=== PATIENT | female | born 1975 | race Caucasian/White ===

== ENCOUNTER 2022-08-01 20:57 | Emergency (ER) | payer BC, SELFPAY ==
--- NOTE | ~2022-08-01 | XR_ITS ---
EXAMINATION: XR chest 2V DATE: 08/01/2022 21:51 INDICATION: Chest pain. TECHNIQUE: Frontal and lateral views of the chest were obtained. COMPARISON: Chest single view 09/11/2018 FINDINGS: There is no pneumonia, pleural effusion, or pneumothorax. The heart size is normal. IMPRESSION: 1. No acute cardiopulmonary disease. Reviewed, dictated and finalized at location E.
[2022-08-01 21:04] VITALS: BP 144/95; PULSE 113; RESP 16; TEMP 36.6; O2SAT 100
--- NOTE | 2022-08-01 21:15 | ECG_ITS ---
Measurements Intervals [place] Rate: 109 P: 34 OK: 158 QRS: -55 QRSD: 87 T: 56 QT: 322 QTc: 434 Interpretive Statements SINUS TACHYCARDIA POSSIBLE LEFT ATRIAL ENLARGEMENT LEFT ANTERIOR FASCICULAR BLOCK CANNOT RULE OUT SEPTAL INFARCT, AGE INDETERMINATE BORDERLINE T WAVE ABNORMALITY- ANTERIOR LEADS ABNORMAL ECG NO PREVIOUS ECG AVAILABLE FOR COMPARISON Electronically Signed On 08-02-2022 6:07:13 CDT by Amrit Allison D.O.
[2022-08-01 21:48] VITALS: O2SAT 97
[2022-08-01 21:48] LABS: Basophils Absolute Auto 0.1 K/mm3 (0.0-0.1); Basophils Percent Auto 0.7 % (0.2-1.2); Eosinophils Absolute Auto 0.3 K/mm3 (0-0.3); Eosinophils Percent Auto 2.2 % (0-4.4); Hematocrit 41.2 % (37.0-47.0); Hemoglobin 13.6 g/dL (12.0-15.0); Immature Granulocyte Absolute 0.04 K/mm3 (0.00-0.031); Immature Granulocyte Percent A 0.3 % (0-0.5); Mean Corpuscular Hemoglobin 30.2 pg (26-34); Mean Corpuscular Volume 91.4 fl (80-100); Mean Platelet Volume 8.6 fl (7.4-10.4); Monocytes Absolute Auto 0.8 K/mm3 (0.1-0.6); Monocytes Percent Auto 6.5 % (2.6-8.5); Neutrophils Absolute Auto 8.4 K/mm3 (1.3-6.7); Neutrophils Percent Auto 68.3 % (45.5-73.1); Platelet Count Result 372 k/mm3 (150-375); Red Blood Count 4.51 M/mm3 (4.2-5.4); Red Cell Distribution Width 13.2 % (11.5-14.5); White Blood Count 12.3 K/mm3 (4.5-10.0)
[2022-08-01 21:59] LABS: INR 0.9; Partial Thromboplastin Time 28.5 SECONDS (22.3-36.8); Prothrombin Time 12.9 Seconds (11.1-14.7)
[2022-08-01 22:00] LABS: Alanine Aminotransferase 24 U/L (6-35); Alkaline Phosphatase 57 U/L (38-126); Anion Gap 4 mmol/L (8-16); Aspartate Amino Transferase 23 U/L (14-36); Bilirubin,Total 0.3 mg/dL (0.2-1.3); Blood Urea Nitrogen 16 mg/dL (7-17); Calcium 9.1 mg/dL (8.4-10.2); Carbon Dioxide 28 mmol/L (22-30); Chloride 106 mmol/L (98-107); Estimated CRCL calculation 76 ml/min; Estimated Glomerular Filt Rate > 60; Glucose 135 mg/dL (65-110); Potassium 3.7 mmol/L (3.4-5.0); Sodium 138 mmol/L (137-145)
[2022-08-01 22:11] LABS: NT Pro B Type Natriuretic Pept 131 pg/mL (19.9-100); Troponin I < 0.012 ng/mL (0.000-0.034)
--- NOTE | 2022-08-01 22:22 | ED.CHESTPAIN ---
HPI - Chest Pain General Chief Complaint: Chest Pain <Dian Kinney PA-C - Last Filed: 08/02/22 04:18> Stated Complaint: dizzness <BRAYAN Stallings Last Filed: 08/02/22 04:18> Time Seen by Provider: 08/01/22 22:01 <Dian Kinney PA-C - Last Filed: 08/02/22 04:18> History of Present Illness HPI narrative: 47-year-old female with a history of a myocardial infarction in 2019 s/p stent placement reports for evaluation of chest tightness and shortness of breath that started approximately 2 days ago. Patient also reports intermittent swelling in her bilateral legs that occurs while she is exercising, is worse at the end of the day, and is associated varicose veins. Patient reports the chest tightness occurs intermittently while she was sitting. It does not occur while she is exercising. Patient states this chest pain does not like the chest pain she had when she had an [place]. Patient was followed by Dr. Hogue after her [place] and was taking Brilinta, carvedilol and a cholesterol medication. She states she has not taken any of her medications because she ran out and has not seen Dr. Hogue in 2 and half years. She is currently denying chest pain and shortness of breath while in the ED. <Dian Kinney PA-C - Last Filed: 08/02/22 04:18> Related Data Allergies/Adverse Reactions: Allergies Allergy/AdvReac Type Severity Reaction Status Date / Time No Known Allergies Allergy Unknown Verified 03/10/03 15:07 <Dian Kinney PA-C - Last Filed: 08/02/22 04:18> Review of Systems Review of Systems: CONSTITUTIONAL: Denies fever, chills EYES: Denies visual changes, redness, or discharge. ENT: Denies rhinorrhea, congestion, sore throat, or otalgia. CARDIOVASCULAR: See HPI RESPIRATORY: See HPI GASTROINTESTINAL: Denies abdominal pain, nausea, vomiting, or diarrhea. GENITOURINARY: Denies dysuria or hematuria. SKIN: Denies rash or itching. MUSCULOSKELETAL: Denies back pain, joint pain, or myalgia. NEUROLOGIC: Denies headache, dizziness, or weakness. PSYCHIATRIC: Denies anxiety or depression. <Dian Kinney PA-C - Last Filed: 08/02/22 04:18> Exam Narrative: GENERAL: Well-appearing, in no acute distress. Patient resting comfortably in exam bed. She is pleasant and conversational. HEAD: Normocephalic EYES: PERRLA. Extraocular movements intact. ENT: Nares clear. Mucous membranes moist. Oropharynx without tonsillar hypertrophy exudate or other lesions. NECK: Supple. CHEST: No respiratory distress. Clear to auscultation, no adventitious breath sounds. HEART: Regular rate and rhythm. No murmur heard. Normal peripheral pulses. ABDOMEN: Soft, nontender, normal active bowel sounds. EXTREMITIES: Normal range of motion. No edema. SKIN: Warm, dry, no rash. NEURO: No focal deficits. Alert and oriented x3. Cranial nerves II through XII intact. Strength 5 out of 5 in bilateral upper and lower extremities. Sensation intact throughout. DP and radial pulses 2+. Normal [id number]. Negative pronator drift. No dysphagia, dysarthria or aphasia. PSYCH: Normal mood and affect. <Dian Kinney PA-C - Last Filed: 08/02/22 04:18> Course [facility]/PA Physician Supervision This is a was performed by both a physician and an APC. I performed all aspects of the MDM as documented w/ the following additions: 47-year-old female presenting ED with chief complaint of some chest tightness and lower extremity edema. Extensive cardiac workup was performed which was negative. Patient's edema is likely due to peripheral edema as opposed to heart failure. Patient has been discharged with appropriate follow-up.All questions answered. Patient in agreement w/ disposition. <Angel Strong MD - Last Filed: 08/12/22 21:00> Vital Signs Vital signs: Vital Signs Temperature 97.9 F 08/01/22 21:04 Pulse Rate 113 H 08/01/22 21:04 Respiratory Rate 16 08/01/22 21:04 Blood Pressure 144/95
[2022-08-01] MEDS: SODIUM CHLORIDE 0.9% IV 1,000 ML 999 ML IV CONT (22:42)
[2022-08-01 22:43] LABS: Lipase 63 U/L (23-300)
[2022-08-02 01:54] LABS: Troponin I < 0.012 ng/mL (0.000-0.034)
[2022-08-02 03:19] VITALS: BP 130/66; PULSE 74; RESP 16; O2SAT 100
== END 2022-08-02 03:28 | disposition home or self-care (01) ==
PROVIDERS: Emergency Medicine; Emergency Provider Physician Assistant; PCP Family Medicine
DX: R07.89 Other chest pain (principal); R60.0 Localized edema; I25.2 Old myocardial infarction; Z95.5 Presence of coronary angioplasty implant and graft; R00.0 Tachycardia, unspecified; R94.31 Abnormal electrocardiogram [ECG] [EKG]
CPT/HCPCS: 36415; 71046; 80053; 81025; 83690; 83880; 84484; 85025; 85380; 85610; 85730; 93005; 96360; 96361; 99284; J7030

== ENCOUNTER 2024-06-14 08:44 | Outpatient (CLI) | payer BC, SELFPAY ==
--- NOTE | ~2024-06-14 | US_ITS ---
EXAMINATION: US thyroid DATE: 06/14/2024 09:26 INDICATION: Goiter TECHNIQUE: Multiple ultrasound images of the thyroid were obtained. COMPARISON: None. FINDINGS: The right thyroid lobe measures 5.6 x 1.8 x 2.3 cm. The left thyroid lobe measures 4.8 x 1.6 x 1.9 c m. At the inferior right thyroid lobe there is a 2.3 cm wider than tall predominant solid hypoechoic nodule with smooth margins and without echogenic foci (TI-RADS 4, moderately suspicious , FNA if >=1 .5 cm, annual followup is >=1 cm). Is also a 6 mm primarily cystic TI RADS 1 nodule at the junction o f the right thyroid lobe and isthmus. 6 mm solid bilateral hypoechoic nodule with smooth to ill-defin ed margins at the thyroid isthmus, also Ti rads 4. There is normal echotexture, echogenicity and vasc ular flow throughout the remainder of the thyroid gland. IMPRESSION: 1. The nodular goiter. Recommend ultrasound-guided fine-needle aspiration of the 2.3 cm TI-RADS 4 rig ht thyroid nodule. Reviewed, dictated and finalized at location B. IMPRESSION: 1. The nodular goiter. Recommend ultrasound-guided fine-needle aspiration of th e 2.3 cm TI-RADS 4 right thyroid nodule.
--- OUTSIDE RECORDS SUMMARY | 2024-06-14 09:17 | XMS_ITS | Clinical Summary ---
Author Organization [facility] [place] [address] Address [address] [place] [address] Care Team Providers Care E Commerce Web Developer Name Role Phone Izabella Ortiz MD Primary Care Provider + Allergies No known active allergies Medications nitroglycerin (NITROSTAT) 0.[address] YESSI MAY REPEAT Q 5 MINUTES FOR 3 DOSES. 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[place] coronary artery of [place] heart without angina pectoris 12/07/2018 History of acute anterior wall [place] 12/07/2018 Medical History Medical History Date Comments Heart attack (HCC) Anxiety Depression Family History Medical History Relation Name Comments Heart attack Father COPD Mother Relation Name Status Comments Father (Age 65) Mother (Age 63) Sister 1 Alive Sister 2 Alive Social History Tobacco Use Types Packs/Day Years Used Date Smoking Tobacco: Never Smokeless Tobacco: Never Tobacco Cessation:Counseling Given: Yes Alcohol Use Standard Drinks/Week Comments Not Currently 0 (1 standard drink = 0.6 oz pur e alcohol) Personal Safety Answer Date Recorded Getting School Help Needed Not on file 06/06 Comments Unknown Sex and Gender Information Value Date Recorded Sex Assigned at Not on file Legal Sex Female 10:49 AM CDT Gender Identity Not on file Sexual Orientation Not on file Obstetrics History Last Filed Vital Signs Vital Sign Reading Time Taken Comments Blood Pressure 110/70 09/29/2019 8:00 AM CDT Pulse 88 09/29/2019 8:00 AM CDT Temperature - - Respiratory Rate - - Oxygen Saturation 98% 09/29/2019 8:00 AM CDT Inhaled Oxygen Concentration - - Weight 86.2 kg (190 lb) 09/29/2019 8:00 AM CDT Height 160 cm (5' 3 ) 09/29/2019 8:00 AM CDT Body Mass Index 33.66 09/29/2019 8:00 AM CDT Plan of Treatment Not on file Insurance [employer] [place] Care Teams E Commerce Web Developer Relationship Specialty Start Date End Date Izabella Ortiz MD PCP - General Family Medicine 10/01/18
--- OUTSIDE RECORDS SUMMARY | 2024-06-14 09:18 | XMS_ITS | Referral Summary ---
Author Organization [facility] [place] [address] Address [address] [place] [address] Care Team Providers Care Outreach Representative Name Role Phone Izabella Ortiz MD Primary [...] Diagnosed Date Coronary artery disease [place] coronary artery of [place] heart without angina pectoris 12/07/2018 History of acute anterior wall [place] 12/07/2018 Social History Tobacco Use Types Packs/Day Years [...] on file Sexual Orientation Not on file Last Filed Vital Signs Vital Sign Reading [...] Plan of Treatment Not on file Insurance [employer] [facility] Care Teams Outreach Representative Relationship Specialty Start Date End Date Izabella Ortiz MD PCP - General Family Medicine 10/01/18
--- OUTSIDE RECORDS SUMMARY | 2024-06-14 09:18 | XMS_ITS | Data Portability ---
Author Organization [facility] Executive [place], Main Office Address [address] [place] [address] Assessment No assessment recorded. Plan of Treatment Reminders Order Date Submit Date Provider Last Modified By Organization Details Last Modified Time Details Appointments Physical/ Annual Wellness 30 2024 09:00A Aaron Ravi NP Not available Not available Not available Lab TSH, serum or plasma 2024 025 [facility] (Lab), [address] [place], [address], 06/09/2024 08:26:33 TSH, serum or plasma 2024 025 [facility] (Lab), [address] [place], [address], 06/02/2024 16:40:55 T3, free, serum or plasma 2024 025 [facility] (Lab), [address] [place], [address], 06/02/2024 16:40:56 thyroid peroxidas e (tpo) Ab, serum 2024 025 [facility] (Lab), [address] [place], [address], 06/03/2024 12:34:57 noninvasi ve colorecta l cancer DNA + occult blood screening , QL, stool 2022 023 [email or web address] [facility] (Cologuard Orders Only), [address], [address], [place], [address], 09/11/2022 08:12:33 TSH, serum or plasma [address] (Lab), [address] [place], [address], 09/04/2022 12:19:31 lipid panel, serum [address] (Lab), [address] [place], [address], 09/04/2022 12:18:42 urinalysi s, complete [address] (Lab), [address] [place], [address], 09/04/2022 12:22:40 HbA1c (hemoglob in A1c), blood [address] (Lab), [address] [place], [address], 09/04/2022 12:20:50 CMP, serum or plasma [address] (Lab), [address] [place], [address], 09/04/2022 12:21:50 CBC [address] (Lab), [address] [place], [address], 09/04/2022 12:17:48 Referral None recorded. Procedures None recorded. Surgeries None recorded. Imaging US, thyroid - Please call patient to schedule. 2024 025 [facility] ([facility] Scheduling), [address] [place], [address], 06/02/2024 10:55:24 MAMMO, screening , digital, bilateral - *please call pt to schedule* 2022 023 [email or web address] 56 [facility], [address], [address] [address], [place], [address], 09/18/2022 08:49:40 Medication Orders Veozah 45 mg tablet 2024 025 [email or web address] 2 [facility], [address] [place], [address], 06/08/2024 16:44:17 bupropion HCl XL 150 mg 24 hr tablet, extended release 2024 025 [facility] [address] [place] [address], [address], 06/02/2024 10:28:36 amoxicill in 875 mg tablet 2024 025 [facility] [address] [place] [address], [address], 06/02/2024 10:28:[address] 10 mg tablet 2022 023 [facility] [address] [place], [address], 09/17/2022 09:17:05 prednison e 20 mg tablet 2022 023 [facility], [address] [place], [address], 09/17/2022 09:17:05 amoxicill in 875 mg tablet 2022 023 [email or web address] [facility], [address] [place], [address], 06/02/2024 10:01:19 fexofenad ine 60 mg-pseudo ephedrine ER 120 mg tablet,ex t.release ,12 hr 2022 023 OTTONIEL [facility], [address], [place], [id number], 09/04/2022 09:13:23 bupropion HCl XL 150 mg 24 hr tablet, extended release 2022 023 [email or web address] [facility]190, [address], [place], [id number], 06/02/2024 10:01:26 Patient TargetsNo targets recorded. Patient Instructions Encounter Date Encounter Id Patient Instructions Last Modified By Organization Details Last Modified Time 09/04/2022 [id number] risk assessment* OTTONIEL Not availabl e 09/04/2022 13:38:44 Reason for Referral None Reported. Results Created Date Observation Date Name Description Value Unit Range Abnormal Flag Note LastModifiedBy Organization Detail LastModifiedTime 09/05/1909/04/2022 CBC W/O DIFFE RENTI AL white blood cells 8.1 x10'3 /uL 4.2-10 .8 Not Available [facility] (Lab) [address] [place], [address], 09/04/2022 20:07:57 09/05/19 23 09/04/2022 CBC W/O DIFFE RENTI AL red blood cells 4.76 x10'6 /uL 3.80-5 .20 Not Available [facility] (Lab) [address] [place], [address], 09/04/2022 20:07:57 09/05/19 23 09/04/2022 CBC W/O DIFFE RENTI AL hemoglobin 14.2 g/dL 12.0-1 5.6 Not Available [facility] (Lab) [address] [place], [address], 09/04/2022 20:07:57 09/05/19 23 09/04/2022 CBC W/O DIFFE RENTI AL hematocrit 44.2 % 35.7-4 5.7 Not Available [facility] (Lab) [address] [place], [address], 09/04/2022 20:07:57 09/05/19 23 09/04/2022 CBC W/O DIFFE RENTI AL mean red cell volume 92.9 fL 82.0-9 9.0 Not Available [facility] (Lab) [address] [place], [address], 09/04/2022 20:07:57 09/05/19 23 09/04/2022 CBC W/O DIFFE RENTI AL mean red cell hemoglobin 29.8 pg 27.0-3 3.0 Not Available [facility] (Lab) [address] [place], [address], 09/04/2022 20:07:57 09/05/19 23 09/04/2022 CBC W/O DIFFE RENTI AL mean RBC HGB concentratio n 32.1 g/dL 31.0-3 6.0 Not Available [facility] (Lab) [address] [place], [address], 09/04/2022 20:07:57 09/05/19 23 09/04/2022 CBC W/O DIFFE RENTI AL red cell distribution width 13.3 % 11.8-1 5.5 Not Available [facility] (Lab) [address] [place], [address], 09/04/2022 20:07:57 09/05/19 23 09/04/2022 CBC W/O DIFFE RENTI AL platelets 420 x10'3 /uL 150-40 0 high Not Available [facility] (Lab) [address] [place], [address], 09/04/2022 20:07:57 09/05/19 23 09/04/2022 CBC W/O DIFFE RENTI AL mean platelet volume 10.1 fL 9.0-12 .4 Not Available [facility] (Lab) [address] [place], [address], 09/04/2022 20:07:57 09/05/19 23 09/04/2022 HEMOG LOBIN A1C HA1C 6.0 % 4.0-6. 0 Diabe sherita Scree karen Crite emiliana: <5.7% Consi stent with absen ce of diabe sherita 5.7-6 .4% Consi stent with incre ased risk for diabe sherita (pred iabet es) >OR=6 .5% Consi stent with diabe sherita REFER ENCE: Diabe sherita Care 2016, 39(Guaman ppl.1 ):s13 -s22 Not Available [facility] (Lab) [address] [place], [address], 09/04/2022 20:30:02 09/05/19 23 09/04/2022 URINA LYSIS COMPL ETE, IRIS color LIGHT- YELLOW Not Available [facility] (Lab) [address] [place], [address], 09/04/2022 20:30:37 09/05/19 23 09/04/2022 URINA LYSIS COMPL ETE, IRIS appear TURBID abnormal Not Available [facility] (Lab) [address] [place], [address], 09/04/2022 20:30:37 09/05/19 23 09/04/2022 URINA LYSIS COMPL ETE, IRIS specific gravity 1.007 1.001- 1.030 Not Available [facility] (Lab) [address] [place], [address], 09/04/2022 20:30:37 09/05/19 23 09/04/2022 URINA LYSIS COMPL ETE, IRIS pH 6.5 pH_un its 5.0-9. 0 Not Available [facility] (Lab) [address] [place], [address], 09/04/2022 20:30:37 09/05/19 23 09/04/2022 URINA LYSIS COMPL ETE, IRIS leukocytes NEGATI VE shekhar/u L negati ve- Not Available [facility] (Lab) [address] [facility] [place], [address], 09/04/2022 20:30:37 09/05/19 23 09/04/2022 URINA LYSIS COMPL ETE, IRIS nitrite NEGATI VE negati ve- Not Available [facility] (Lab) [address] [place], [address], 09/04/2022 20:30:37 09/05/19 23 09/04/2022 URINA LYSIS COMPL ETE, IRIS protein NEGATI VE mg/dL negati ve- Not Available [facility] (Lab) [address] [place], [address], 09/04/2022 20:30:37 09/05/19 23 09/04/2022 URINA LYSIS COMPL ETE, IRIS glucose NORMAL mg/dL normal - Not Available [facility] (Lab) [address] [place], [address], 09/04/2022 20:30:37 09/05/19 23 09/04/2022 URINA LYSIS COMPL ETE, IRIS ketones NEGATI VE mg/dL negati ve- Not Available [facility] (Lab) [address] [place], [address], 09/04/2022 20:30:37 09/05/19 23 09/04/2022 URINA LYSIS COMPL ETE, IRIS urobilinogen NORMAL mg/dL normal - Not Available [facility] (Lab) [address] [place], [address], 09/04/2022 20:30:37 09/05/19 23 09/04/2022 URINA LYSIS COMPL ETE, IRIS bilirubin NEGATI VE mg/dL negati ve- Not Available [facility] (Lab) [address] [place], [address], 09/04/2022 20:30:37 09/05/19 23 09/04/2022 URINA LYSIS COMPL ETE, IRIS blood NEGATI VE mg/dL negati ve- Not Available [facility] (Lab) [address] [place], [address], 09/04/2022 20:30:37 09/05/19 23 09/04/2022 URINA LYSIS COMPL ETE, IRIS white blood cells 0-8 /i??h pfi?? 0-8 Not Available [facility] (Lab) [address] [place], [address], 09/04/2022 20:30:37 09/05/19 23 09/04/2022 URINA LYSIS COMPL ETE, IRIS red blood cells 0-4 /i??h pfi?? 0-4 Not Available [facility] (Lab) [address] [place], [address], 09/04/2022 20:30:37 09/05/19 23 09/04/2022 URINA LYSIS COMPL ETE, IRIS bacteria NONE Not Available [facility] (Lab) [address] [place], [address], 09/04/2022 20:30:37 09/05/19 23 09/04/2022 URINA LYSIS COMPL ETE, IRIS squamous epithelial PACKED FIELD /i??l pfi?? abnormal Not Available [facility] (Lab) [address] [place], [address], 09/04/2022 20:30:37 09/05/19 23 09/04/2022 LIPID PANEL cholesterol 174 mg/dL 140-19 9 NIH PRADEEP NSUS RECOM MENDA TION FOR JEROME STERO L: ADULT CHILD LOW RISK: <200 <170 BORDE RLINE : <200- 239 ----- HIGH RISK: >240 >200 Not Available [facility] (Lab) [address] [place], [address], 09/04/2022 21:15:13 09/05/19 23 09/04/2022 LIPID PANEL triglyceride s 58 mg/dL 0-150 NIH PRADEEP NSUS REPOR T RECOM MENDA TION FOR TRIGL YCERI JOHN: ADULT CHILD LOW RISK: <150 ----- BODER LINE: 150-1 99 ----- HIGH RISK: >200 ----- Not Available [facility] (Lab) [address] [place], [address], 09/04/2022 21:15:13 09/05/19 23 09/04/2022 LIPID PANEL HDL cholesterol 41 mg/dL 40- Not Available [facility] (Lab) [address] [place], [address], 09/04/2022 21:15:13 09/05/19 23 09/04/2022 LIPID PANEL LDL cholesterol, calculated 121 mg/dL 0-130 NIH PRADEEP NSUS REPOR T RECOM MENDA TIONS FOR LDL: ADULT CHILD LOW RISK <130 <110 (OPTI MAL LDL) <100 ----- BORDE RLINE : 130-1 59 ----- HIGH RISK: >160 >130 A TRIGL YCERI DE RESUL T >400 INVAL IDATE S THE CALCU LATIO N FOR LDL FRACT IONAT ION - THE LDL RESUL T WILL NOT BE REPOR [place]. Not Available [facility] (Lab) [address] [place], [address], 09/04/2022 21:15:13 09/05/19 23 09/04/2022 COMPR EHENS DAMIAN METAB OLIC PANEL sodium 140 mmol/ L 137-14 5 Not Available [facility] (Lab) [address] [place], [address], 09/04/2022 21:15:19 09/05/19 23 09/04/2022 COMPR EHENS DAMIAN METAB OLIC PANEL potassium 4.2 mmol/ L 3.5-5. 1 Not Available [facility] (Lab) [address] [place], [address], 09/04/2022 21:15:19 09/05/19 23 09/04/2022 COMPR EHENS DAMIAN METAB OLIC PANEL chloride 106 mmol/ L 98-107 Not Available [facility] (Lab) [address] [place], [address], 09/04/2022 21:15:19 09/05/19 23 09/04/2022 COMPR EHENS DAMIAN METAB OLIC PANEL carbon dioxide 25 mmol/ L 22-30 Not Available [facility] (Lab) [address] [place], [address], 09/04/2022 21:15:19 09/05/19 23 09/04/2022 COMPR EHENS DAMIAN METAB OLIC PANEL anion gap 13.2 mmol/ L 14-22 low Not Available [facility] (Lab) [address] [place], [address], 09/04/2022 21:15:19 09/05/19 23 09/04/2022 COMPR EHENS DAMIAN METAB OLIC PANEL glucose 86 mg/dL 70-99 Not Available [facility] (Lab) [address] [place], [address], 09/04/2022 21:15:19 09/05/19 23 09/04/2022 COMPR EHENS DAMIAN METAB OLIC PANEL BUN 14 mg/dL 8-19 Not Available [facility] (Lab) [address] [place], [address], 09/04/2022 21:15:19 09/05/19 23 09/04/2022 COMPR EHENS DAMIAN METAB OLIC PANEL creatinine 0.89 mg/dL 0.66-1 .25 Not Available [facility] (Lab) [address] [place], [address], 09/04/2022 21:15:19 09/05/19 23 09/04/2022 COMPR EHENS DAMIAN METAB OLIC PANEL GFR >60 Refer ence Range : [place] ge GFR Healt hy Adult : >60 mL/mi n/1.7 3 m2 Chron ic Kidne y Disea se: 15-60 mL/mi n/1.7 3 m2 Kidne y Failu re: <15/m L/min /1.73 m2 www.n iddk. nih.g ov The MDRD study equat ion has not been valid ated in child annita <18 years of age; pregn ant women ; the elder ly >85 years of age; or in some racia l or ethni c subgr oups, such as Hispa nics. Outsi de the valid ated peyton eters , estim ated GFR is less accur ate, requi ring clini malcolm judgm ent on a case- by-ca se basis . Clini malcolm inter preta tion for other races and ages must be made by the clini mynor. The MDRD study equat ion has not been valid ated for the evalu ation of serum creat inine relat ed to nutri gwen l statu s or medic ation usage . For perso ns <18 years of age, a pedia tric GFR calcu lator is avail able on the [facility] websi te: https ://uriel shields.santy johnson/pr lorin jane s/kdo qi/gf r_cal culat or Not Available [facility] (Lab) [address] [place], [address], 09/04/2022 21:15:19 09/05/1909/04/2022 COMPR EHENS DAMIAN METAB OLIC PANEL alkaline phosphatase 52 U/L 38-126 Not Available [facility] (Lab) [address] [place], [address], 09/04/2022 21:15:19 09/05/19 23 09/04/2022 COMPR EHENS DAMIAN METAB OLIC PANEL alanine aminotransfe rase 18 U/L 0-35 Not Available [facility] (Lab) [address] [place], [address], 09/04/2022 21:15:19 09/05/19 23 09/04/2022 COMPR EHENS DAMIAN METAB OLIC PANEL aspartate aminotransfe rase 22 U/L 15-37 Not Available [facility] (Lab) [address] [place], [address], 09/04/2022 21:15:19 09/05/19 23 09/04/2022 COMPR EHENS DAMIAN METAB OLIC PANEL bilirubin, total 0.40 mg/dL 0.20-1 .30 Not Available [facility] (Lab) [address] [place], [address], 09/04/2022 21:15:19 09/05/19 23 09/04/2022 COMPR EHENS DAMIAN METAB OLIC PANEL calcium 9.3 mg/dL 8.4-10 .2 Not Available [facility] (Lab) [address] [place], [address], 09/04/2022 21:15:19 09/05/19 23 09/04/2022 COMPR EHENS DAMIAN METAB OLIC PANEL total protein 6.9 g/dL 6.3-8. 2 Not Available [facility] (Lab) [address] [place], [address], 09/04/2022 21:15:19 09/05/19 23 09/04/2022 COMPR EHENS DAMIAN METAB OLIC PANEL albumin 3.7 g/dL 3.4-5. 0 Not Available [facility] (Lab) [address] [place], [address], 09/04/2022 21:15:19 09/05/19 23 09/04/2022 COMPR EHENS DAMIAN METAB OLIC PANEL globulin 3.2 g/dL 2.6-4. 2 Not Available [facility] (Lab) [address] [place], [address], 09/04/2022 21:15:19 09/05/19 23 09/04/2022 COMPR EHENS DAMIAN METAB OLIC PANEL A/G ratio 1.2 ratio 1.0-2. 0 Not Available [facility] (Lab) [address] [place], [address], 09/04/2022 21:15:19 09/05/19 23 09/04/2022 TSH thyroid-stim ulating hormone 0.963 uIU/m L 0.465- 4.680 Not Available [facility] (Lab) [address] [place], [address], 09/04/2022 21:41:50 09/11/1909/10/2022 COLOG UARD cologuard result reportable NEGATI VE negati ve NEGAT DAMIAN TEST RESUL T. A negat damian Colog uard resul t indic ates a low likel ihood that a color ectal cance r (CRC) or advan jaci adeno ma (denis omato us polyp s with more advan jaci pre-m align ant featu res) is prese nt. The [facility] e that a perso n with a negat damian Colog uard test has a color ectal cance r is less than 1 in 1500 (nega tive predi ctive value >99.9 %) or has an advan jaci adeno ma is less than 5.3% (nega tive predi ctive value 94.7% ). These data are based on a prosp ectiv e cross -sect ional study of 10,00 0 indiv idual s at [facility] risk for color ectal cance r who were scree mandy with both Colog uard and colon oscop y. (Hallie bermudez T. et al, N Engl J Med 2014; 370(1 4):12 86-12 97) The candice l value (refe rence range ) for this assay is negat damian. COLOG UARD RE-SC REENI NG RECOM MENDA TION: Perio dic color ectal cance r scree karen is an impor tant part of preve ntive healt hcare for asymp tomat ic indiv idual s at [facility] for color ectal cance r. Follo wing a negat damian Colog uard resul t, the Ameri can Cance r Socie ty and U.S. Multi -Soci ety Task Force scree karen guide lines recom mend a Colog uard re-sc romina ng inter ren of 3 years . Refer ences : Ameri can Cance r Socie ty Guide line for Color ectal Cance r Scree karen: https ://uriel w.can cer.o rg/ca ncer/ colon -rect al-ca ncer/ detec tion- diagn osis- stagi ng/ac s-rec ommen datio ns.ht ml.; Óscar SALAZAR, Seun YEAGER, Isael PETERS, Color ectal Cance r Scree karen: Recom menda tions for Physi cians and Patie nts from the U.S. Multi -Soci ety Task Force on Color ectal Cance r Scree karen , Arina carrnte rolog y 2017; 112:1 016-1 030. TEST DESCR IPTIO N: [place] site algor ithmi c kristen sis of stool DNA-b iomar kers with hemog lobin immun oassa y. Quant itati ve value s of indiv idual bioma rkers are not repor table and are not assoc iated with indiv idual bioma rker resul t refer ence range s. Colog uard is inten ded for color ectal cance r scree karen of adult s of eithe r sex, 45 years or older , who are at [facility] for color ectal cance r (CRC) . Colog uard has been appro karolyn for use by the U.S. FDA. The perfo rmanc e of Colog uard was estab lishe d in a cross secti onal study of [facility] adult s aged 50-84 . Colog uard perfo rmanc e in patie nts ages 45 to 49 years was estim ated by sub-g roup kristen sis of near- age group s. Colon oscop ies perfo rmed for a posit damian resul t may find as the most clini gilberto signi fican t lesio n: color ectal cance r [4.0% ], advan jaci adeno ma (incl uding sessi le marcie [place] polyp s great er than or equal to 1cm diame ter) [20%] or non- advan jaci adeno ma [31%] ; or no color ectal neopl bucky [45%] . These estim ates are deriv ed from a prosp ectiv e cross -sect ional scree karen study of 0 indiv idual s at [facility] risk for color ectal cance r who were scree mandy with both Colog uard and colon oscop y. (Hallie Littlejohn. et al, N Engl J Med 2014; 370(1 4):12 86-12 97.) Colog uard may produ ce a false negat damian or false posit damian resul t (no color ectal cance r or preca ncero us polyp prese nt at colon oscop y follo w up). A negat damian Colog uard test resul t does not guara ntee the absen ce of CRC or advan jaci adeno ma (pre- cance r). The curre nt Colog uard scree karen inter ren is every 3 years . (Amer ican Cance r Socie ty and U.S. Multi -Soci ety Task Force ). Colog uard perfo rmanc e data in a 0 patie nt pivot al study using colon oscop y as the refer ence metho d can be acces sed [facility] locat ion: www.e xactl abs.c om/re rosy . Addit ional descr iptio n of the Colog uard test proce ss, warni ngs and preca ution s can be found at www.c mejiaogu candido.c om. Not Available [facility] (Cologuard Orders Only) [address], [place], [address], 09/21/2022 17:31:10 Result Notes None recorded. Problems Name Problem SNOMED Code Status Onset Date Resolution Date Notes Provider Name and Address Organization Details Recorded Time Attack 101070972 Active 2018 Not Available [facility] 3 08:09:09 Fever 602276739 Active Not Available [facility] 3 08:09:09 Foot pain 30908296 Active Not Available [facility] 3 08:09:10 Chronic fatigue syndrome 95414217 Active Not Available [facility] 3 08:09:10 COVID-19 589769694 Active 2020 Not Available [facility] 3 08:09:10 Mood disorder 10265928 Active 2022 [facility] [place] [address], [address], [place], [address] , [place] [facility] 3 08:51:48 Seasonal allergy 752313702 Active 2022 [facility] [address], [address], [place], [address] , [place] [facility] 3 09:03:01 Upper respiratory infection 43478567 Active 2022 WOJCIECH Tripp [address], [address], [place], [address] , [place] [facility] 3 12:02:45 Acute sinusitis 85769504 Active 2022 [facility] [place] [address], [address], [place], [address] , [place] [facility] 3 09:06:21 Prediabetes 337183134 Active 2022 [facility] [address], [address], [place], [address] , [place] [facility] 3 09:11:15 Goiter 3452060 Active 2024 MALCOLM Mcgarry [address], [address], [place], [address] , [place] [facility] 5 10:16:19 Acute upper respiratory infection 71052740 Active 2024 MALCOLM Mcgarry [address], [address], [place], [address] , [facility] Executive Caddie 5 10:19:42 Menopausal flushing 943046251 Active 2024 MALCOLM Mcgarry [address], [facility] [address], [place], [address] , [facility] Executive [facility] 5 10:23:56 Problem Notes None recorded. Medical Equipment None Reported. Allergies No known drug allergies Medications Name Sig Start Date Stop Date Status Note LastModified by Organization Details LastModified Time carvedilo l 6.25 mg tablet 1/2 tab po bid 09/04 completed Not Available Not Available Not Available prednison e 10 mg tablet 03/10 completed Not Available Not Available Not Available azithromy ann 250 mg tablet TAKE 2 TABLETS BY MOUTH TODAY, THEN TAKE 1 TABLET DAILY FOR 4 DAYS 09/17 completed Not Available Not Available Not Available benzonata te 200 mg capsule Take 1 capsule 3 times a day by oral route for 10 days. 09/19 completed Not Available Not Available Not Available cephalexi n 250 mg capsule 09/19 completed Not Available Not Available Not Available prednison e 20 mg tablet Take 2 tablets every day by oral route for 5 days. active Not Available Not Available No t Available venlafaxi ne ER 150 mg capsule,e xtended release 24 hr Take 1 capsule every day by oral route. active Not Available Not Available No t Available Tamiflu 75 mg capsule Take 1 capsule twice a day by oral route for 5 days. active Not Available Not Available No t Available sulfameth oxazole 800 mg-trimet hoprim 160 mg tablet 09/19 completed Not Available Not Available Not Available amoxicill in 875 mg tablet TAKE 1 TABLET BY MOUTH EVERY 12 HOURS FOR 10 DAYS active Not Available Not Available No t Available benzonata te 100 mg capsule 03/10 completed Not Available Not Available Not Available tobramyci n 0.3 % eye drops 09/04 completed Not Available Not Available Not Available nitroglyc jo ann 0.4 mg sublingua l tablet active Not Available Not Available Not Available monteluka st 10 mg tablet TAKE 1 TABLET BY MOUTH EVERYDAY AT BEDTIME active Not Available Not Available No t Available lisinopri l 5 mg tablet 1 po qday 09/19 completed Not Available Not Available Not Available estradiol 0.5 mg tablet active Not Available Not Available Not Available Cheratuss in AC 10 mg-100 mg/5 mL oral liquid Take 10 mL every 4 hours by oral route as needed. 04/07 completed Not Available Not Available Not Available albuterol sulfate HFA 90 mcg/actua tion aerosol inhaler Inhale 2 puffs every 4 hours by inhalati on route as needed. active Not Available Not Available No t Available fexofenad ine 60 mg-pseudo ephedrine ER 120 mg tablet,ex t.release ,12 hr Take 1 tablet twice a day by oral route as needed. 2022 active Not Available Not Available Not Avai lable amoxicill in 875 mg-potass ium clavulana te 125 mg tablet TAKE 1 TABLET BY MOUTH EVERY TWELVE HOURS WITH FOOD 09/04 completed Not Available Not Available Not Available escitalop yoandy 20 mg tablet 1/2 tab daily 09/19 completed Not Available Not Available Not Available rosuvasta tin 5 mg tablet 1 po qday 09/04 completed Not Available Not Available Not Available rosuvasta tin 10 mg tablet 09/19 completed Not Available Not Available Not Available bupropion HCl XL 150 mg 24 hr tablet, extended release TAKE 1 TABLET BY MOUTH EVERY DAY active Not Available Not Available No t Available nitrofura ntoin monohydra te/macroc rystals 100 mg capsule 04/07 completed Not Available Not Available Not Available duloxetin e 30 mg capsule,d elayed release TAKE 1 CAPSULE BY MOUTH TWICE DAILY 07/05 completed Not Available Not Available Not Available testoster one 20 mg 2024 active Not Available Not Available Not Avai lable progester one takes 110 mg daily active Not Available Not Available No t Available Brilinta 90 mg tablet TK 1 T PO BID 09/04 completed Not Available Not Available Not Available Chantix Starting Month Box 0.5 mg (11)-1 mg (42) tablets in dose pack 09/19 completed Not Available Not Available Not Available Veozah 45 mg tablet Take 1 tablet every day by oral route. 06/08 completed PA not approved through insuranc e Not Available Not Available Not Available Vitals Date Recorded Body weight Body mass index (BMI) Body height Body temperature Heart rate Oxygen saturation Oxygen saturation in Arterial blood by Pulse oximetry Systolic blood pressure Diastolic blood pressure Provider Name and Address Organization Details Last Updated DateTime 3 24415.8 9 g 30.5 kg/m2 160.02 cm 97.5 [degF] 94 /min 98 % 98 % 114 mm[Hg] 68 mm[Hg] Galina thomas CMA [facility] [employer] [facility] 3 08:47:24 Date Recorded Body height Body mass index (BMI) Body weight Body temperature Heart rate Oxygen saturation Oxygen saturation in Arterial blood by Pulse oximetry Systolic blood pressure Diastolic blood pressure Provider Name and Address Organization Details Last Updated DateTime 3 160.02 cm 30.6 kg/m2 41880.4 8 g 98.5 [degF] 99 /min 96 % 96 % 138 mm[Hg] 96 mm[Hg] Carlene Ellis RN [facility] [employer] [facility] 3 08:57:22 Date Recorded Body weight Respiratory rate Heart rate Body temperature Oxygen saturation Oxygen saturation in Arterial blood by Pulse oximetry Systolic blood pressure Diastolic blood pressure Provider Name and Address Organization Details Last Updated DateTime 5 51079.6 3 g 17 /min 92 /min 98.1 [degF] 98 % 98 % 122 mm[Hg] 80 mm[Hg] Gloria Beverly [facility] [employer] [facility] 5 10:06:20 Social History None recorded. Functional Status None recorded. Mental Status None recorded. Family History Nothing Reported. Medical History No medical history recorded. Gynecological History Statement/Question Response Menses Monthly Y Date of LMP 09/11/2022 Breast Problems no Discharge no Obstetrics History GPAL:G 1 P 1 0 0 1 Type Value Full Term 1 Living 1 Total 1 Past Encounters Encounter ID Performer Location Encounter Start Date Encounter Closed Date Diagnosis/Indication Diagnosis SNOMED-CT Code Diagnosis ICD10 Code Diagnosis Note [id number] COSME Mills [facility] Primary [facility] [address] [place] [address] 09/04/2022 08:27:32 09/04/2022 08:39:12 Mood disorder 24575811 F39 Chronic Adult heal th examination 396329700 Z13.29 Z13.220 Z13.89 Z13.1 Z00.01 Adult Health Exam--Due for routine labs (CBC, CMP, Lipids, HgA1C, TSH, UA).--Mamm ogram ordered--C olon screening at 45yo-Colog uard ordered--B one Density at 65yo if indicated- -PAP/WWE-r ecommended . Pt to schedule.- -Tdap recommende d q 10 years-up to date--Flu recommende d yearly--CO VID-19 recommende d-Pt declines-- Encouraged yearly dental, vision, hearing screenings Screening mammography 24 296982 Z12.31 Seasonal allergy 0822068 04 J30.2 Screening for malignant neoplasm of colon 524725052 Z12.11 [id number] COSME Mills [facility] [address] [place] [address] 09/17/2022 08:40:01 09/17/2022 09:23:34 Acute sinusitis 06262701 J01.90 No improvemen t with Z-pack.Enc ouraged warm compresses to face/jawli ne to promote drainage. Ok to take otc pain relievers per package instructio ns to reduce discomfort . Continue/s tart nasal spray otc anti-hista mines per package instructio ns. Complete all abx and steroids as directed. Seasonal allergy 9557856 04 J30.2 ChronicNot improved with fexofenadi ne.Seasona l allergies can be mild with symptoms that do not affect our quality of life however they can be severe affecting quality of life and daily activities . Medication s that help control the symptoms include intranasal and oral formulatio ns of antihistam darshana, decongesta nts, and cortical steroids, and intranasal cromolyn, intranasal anticholin ergics and oral leukotrien e receptor antagonist s. These medication s are well known to the public and go by the names of Flonase, Zyrtec, Sudafed, prednisone , and Singulair. Allergic rhinitis is an inflammato ry process of the nasal mucosa triggered by environmen adela allergens. The symptoms of allergic rhinitis can be intermitte nt, mild persistent , and moderate to severe. Treatment depends on what category the patient and their symptoms fall into. Encouraged pt to avoid triggers, take meds consistent ly, maintain good hydration. Will give course of steroids and add on montelukas t [facility] Prediabetes 305755602 R7 3.03 New [id number] 6.0 (09/04/22)D iscussed need for regular exercise, increase intake of water/vege tables/fib er. Decrease intake of carbs, especially white rice/pasta /flour/jonah ad/sugar. [id number] Tessie Ravi, [facility] [place] [facility] Primary Care [facility] [address] [place] [address] 06/02/2024 09:52:13 06/02/2024 10:49:56 Goiter 0966011 E04.9 Acute uppe r respiratory infection 91494750 J06.9 Mood disorder 75112855 F 40 Menopausal flushing 1983 33757 N95.1 Health Concerns Section Related Observation LastModified by Organization Detai ls LastModified Time None Recorded Concern Status LastModified by Organization Details LastModified Time None Recorded Advance Directives Directive None Recorded Payers Encounter Date Sequence Insurance Name Policy Number Policy Javier Covered Member ID Javier Member ID Guarantor Name 09/04/2022 1 [place] [id number] Maren Mckoy [id number] Maren Mckoy 09/17/2022 1 [place] [id number] Maren Mckoy [id number] Maren Mckoy 06/02/2024 1 [place] [id number] Maren Mckoy [id number] Maren Mckoy Notes Date Note Type Note Provider Name and Address Organization Details Recorded Time 09/04/2022 text/html 1. Pt in office to re-establish care. COSME Mills [address], [place], [address], [facility] [employer] 09/04/2022 10:26:48 09/17/2022 text/html 1. Pt in office for 2 week f/u on labs2. Pt states she is still having a hard time with her allergies despite taking the Khloe daily. Pt states the Z-pack she received isn't helping. Kervin Juarez, COSME [address], [place], [address], [employer] 09/17/2022 13:51:59 06/02/2024 text/html Patient is a 49 year old female that presents to the office to discuss a thyroid issue that was discovered by [facility]. Patient reports she had a lifelong screening completed through [facility], when they were completing the ultrasound of her jugular they noticed an enlarged thyroid and instructed patient to follow up with her primary.Patient reports she has been having bone pain, hair loss, fatigue and brain fog that has been progressively getting worse over the last year. Patient also reports hot flashes/sweating that wake her from her sleep 3-4 times per night. Patient reports she has contributed these symptoms to menopause. Patient would also like to restart her Bupropion that was discontinued due to her not being able to get into the office. Denies SI/Hi. Patient reports she had the flu about 3 weeks ago and has had productive cough with green sputum for ever since. Patient has been taking AllegraD and Mucinex without relief of symptoms. Denies chest pain and shortness of breath, nausea vomiting diarrhea and fevers. Patient denies ear pain and sore throat. Patient's son is sick with similar symptoms. Tessie Ravi, [facility] [address] [facility] [address], [place], [address], [employer] 06/02/2024 11:12:26 OBGyn Episode No OBEpisode recorded.
--- OUTSIDE RECORDS SUMMARY | 2024-06-14 09:18 | XMS_ITS | Clinical Summary ---
Author Organization [facility] Address [address] [place] [address] Care Team Providers Care Seaming Inspector Name Role Phone Unavailable Primary Care Provider Unavailabl e Social History Tobacco Use Types Packs/Day Years Used Date Smoking Tobacco: Never Assessed Comments Unknown Sex and Gender Information Value Date Recorded Sex Assigned at Not on file Legal Sex Female 9:10 PM CDT Gender Identity Not on file Sexual Orientation Not on file Plan of Treatment Health Maintenance Due Date Last Done Comments Cervical Cancer Screening Pa p Smear (Age 30 to 64) Every 3 Years 1976 Colorectal Cancer Screening Colonoscopy (10 Years) 1976 Annual Physical 01/15/1979 Hepatitis C 01/15/1994 DTaP, Tdap and Td Vaccines ( 1 - Tdap) 01/15/1995 Hepatitis B Vaccines (1 of 3 - 19+ 3-dose series) 01/15/1995 Cervical Cancer Screening Pa p with HPV Testing (Age 30 to 64) Every 5 Years 01/15/2006 Cervical Cancer Screening with HPV 01/15/2006 Mammogram Screening 2016 COVID-19 Vaccine (2023-2 5 season) 2023 Influenza Adult (#1) 2023 Meningococcal B Vaccine Aged Out No l onger eligible based on patient's age to complete this topic Meningococcal Vaccine Aged Out No fili lor eligible based on patient's age to complete this topic Pneumococcal Vaccine: Pediat rics (0 to 5 Years) and At-Risk Patients (6 to 64 Years) Aged Out No longer eligible b ased on patient's age to complete this topic RSV Immunizations Under 20 Months Aged Out No longer eligible based on patient's age to complete this topic
== END 2024-06-14 08:45 | disposition home or self-care (01) ==
PROVIDERS: PCP Family Medicine; Visit Provider Nurse Practitioner Family
DX: E04.2 Nontoxic multinodular goiter (principal)
CPT/HCPCS: 76536

== ENCOUNTER 2024-07-26 12:51 | Outpatient (CLI) | payer BC, SELFPAY ==
--- NOTE | ~2024-07-26 | US_ITS ---
EXAMINATION: US FNA w image guidance DATE: 07/26/2024 13:59 INDICATION: Nontoxic single thyroid nodule TECHNIQUE: A time-out was performed to verify the patient's name, date of , and procedure to be performed . The procedure and its benefits and risks were discussed with the patient. Risks specifically discus sed included bleeding and infection. The patient understood the risks and agreed to proceed. The neck was prepped and draped in the usual sterile manner. 3 mL 1% lidocaine was used for local anesthesia . 6 passes were made with a 25G needle into the lesion. Appropriate needle location was documented with continuous sonographic guidance. A sterile bandage was applied. There were no immediate compli cations. FINDINGS: Grayscale ultrasound images demonstrate biopsy needles advanced into a 2.3 cm primarily solid hypoech oic nodule with coarse calcifications in the inferior right thyroid lobe. IMPRESSION: 1. Successful ultrasound-guided fine needle aspiration of the 2.3 cm TI RADS 4 nodule of concern at the inferior right thyroid. Reviewed, dictated and finalized at location A.
--- OUTSIDE RECORDS SUMMARY | 2024-07-26 13:07 | XMS_ITS | Referral Summary ---
Author Organization [facility] [address] Address [address] [place] [address] Care Team Providers Care Health Counselor Name Role Phone Izabella Ortiz MD Primary [...] Diagnosed Date Coronary artery disease invo lving chinik coronary artery of [place] heart without angina pectoris 12/07/2018 History of acute anterior wall ID 12/07/2018 Social History Tobacco Use Types Packs/Day [...] Plan of Treatment Not on file Insurance [facility] Care Teams Health Counselor Relationship Specialty Start Date End Date Izabella Ortiz MD PCP - General Family Medicine 10/01/18
--- OUTSIDE RECORDS SUMMARY | 2024-07-26 13:07 | XMS_ITS | Data Portability ---
Author Organization [facility] [employer], Main Office Address [address] [place] [address] Assessment No assessment recorded. Plan of Treatment Reminders Order Date Submit Date Provider Last Modified By Organization Details Last Modified Time Details Appointments Physical/ Annual Wellness 30 2024 09:00A Aaron Ravi NP Not available Not available Not available Lab TSH, serum or plasma 2024 025 [facility] (Lab), [address] [place], [address], 06/09/2024 08:26:33 TSH, serum or plasma 2024 025 [facility] (Lab), [address] [place], [address], 06/02/2024 16:40:55 T3, free, serum or plasma 2024 025 [facility] (Lab), [address] [place], [address], 06/02/2024 16:40:56 thyroid peroxidas e (tpo) Ab, serum 2024 025 [facility] (Lab), [address] [place], [address], 06/03/2024 12:34:57 noninvasi ve colorecta l cancer DNA + occult blood screening , QL, stool 2022 023 [email or web address] [facility] (Cologuard Orders Only), [address], [address], [place], [address], 09/11/2022 08:12:33 TSH, serum or plasma [address] (Lab), [address] [place], [address], 09/04/2022 12:19:31 lipid panel, serum [address] (Lab), [address] [place], [address], 09/04/2022 12:18:42 urinalysi s, complete [address] (Lab), [address] [place], [address], 09/04/2022 12:22:40 HbA1c (hemoglob in A1c), blood [address] (Lab), [address] [place], [address], 09/04/2022 12:20:50 CMP, serum or plasma [address] (Lab), [address] [place], [address], 09/04/2022 12:21:50 CBC [address] (Lab), [address] [place], [address], 09/04/2022 12:17:48 Referral None recorded. Procedures None recorded. Surgeries None recorded. Imaging US, thyroid - Please call patient to schedule. 2024 025 [facility] (One Call Scheduling), [address] [place], [address], 06/14/2024 18:13:32 MAMMO, screening , digital, bilateral - *please call pt to schedule* 2022 023 56 [facility], [address], [address] [address], [place], [address], 09/18/2022 08:49:40 Medication Orders Veozah 45 mg tablet 2024 025 [email or web address] 2 [facility], [address] [place] [address], [address], 06/08/2024 16:44:17 bupropion HCl XL 150 mg 24 hr tablet, extended release 2024 025 [facility] [address] [place], [address], 06/02/2024 10:28:36 amoxicill in 875 mg tablet 2024 025 [facility], [address] [place] [address], [address], 06/02/2024 10:28:[address] 10 mg tablet 2022 023 [facility] [address] [place], [address], 09/17/2022 09:17:05 prednison e 20 mg tablet 2022 023 [facility], [address] [place], [address], 09/17/2022 09:17:05 amoxicill in 875 mg tablet 2022 023 [email or web address] [facility], [address] [place], [address], 06/02/2024 10:01:19 fexofenad ine 60 mg-pseudo ephedrine ER 120 mg tablet,ex t.release ,12 hr 2022 023 [facility], [address] [place], [place], [id number], 09/04/2022 09:13:23 bupropion HCl XL 150 mg 24 hr tablet, extended release 2022 023 [email or web address] [facility]78498, [address] [place], [place], [id number], 06/02/2024 10:01:26 Patient TargetsNo targets recorded. Patient Instructions Encounter Date Encounter Id Patient Instructions Last Modified By Organization Details Last Modified Time 09/04/2022 [id number] risk assessment* OTTONIEL Not availabl e 09/04/2022 13:38:44 Reason for Referral None Reported. Results Created Date Observation Date Name Description Value Unit Range Abnormal Flag Note LastModifiedBy Organization Detail LastModifiedTime 09/05/1909/04/2022 CBC W/O DIFFE RENTI AL white blood cells 8.1 x10'3 /uL 4.2-10 .8 Not Available [facility] (Lab) [address] [place], [address], 09/04/2022 20:07:57 09/05/19 23 09/04/2022 CBC W/O DIFFE RENTI AL red blood cells 4.76 x10'6 /uL 3.80-5 .20 Not Available [facility] (Lab) [address] [place], [address], 09/04/2022 20:07:57 09/05/19 23 09/04/2022 CBC W/O DIFFE RENTI AL hemoglobin 14.2 g/dL 12.0-1 5.6 Not Available [facility] (Lab) [address] [place], [address], 09/04/2022 20:07:57 09/05/19 23 09/04/2022 CBC W/O DIFFE RENTI AL hematocrit 44.2 % 35.7-4 5.7 Not Available [facility] (Lab) [address] [place], [address], 09/04/2022 20:07:57 09/05/19 23 09/04/2022 CBC W/O DIFFE RENTI AL mean red cell volume 92.9 fL 82.0-9 9.0 Not Available [facility] (Lab) [address] [place], [address], 09/04/2022 20:07:57 09/05/19 23 09/04/2022 CBC W/O DIFFE RENTI AL mean red cell hemoglobin 29.8 pg 27.0-3 3.0 Not Available [facility] (Lab) [address] [place], [address], 09/04/2022 20:07:57 09/05/19 23 09/04/2022 CBC W/O DIFFE RENTI AL mean RBC HGB concentratio n 32.1 g/dL 31.0-3 6.0 Not Available [facility] (Lab) [address] [place], [address], 09/04/2022 20:07:57 09/05/19 23 09/04/2022 CBC W/O DIFFE RENTI AL red cell distribution width 13.3 % 11.8-1 5.5 Not Available [facility] (Lab) [address] [place], [address], 09/04/2022 20:07:57 09/05/19 23 09/04/2022 CBC W/O DIFFE RENTI AL platelets 420 x10'3 /uL 150-40 0 high Not Available [facility] (Lab) [address] [place], [address], 09/04/2022 20:07:57 09/05/19 23 09/04/2022 CBC W/O DIFFE RENTI AL mean platelet volume 10.1 fL 9.0-12 .4 Not Available [facility] (Lab) [address] [place], [address], 09/04/2022 20:07:57 09/05/19 23 09/04/2022 HEMOG LOBIN A1C HA1C 6.0 % 4.0-6. 0 Diabe sherita Scree karen Crite emiliana: <5.7% Consi stent with absen ce of diabe sherita 5.7-6 .4% Consi stent with incre ased risk for diabe sherita (pred iabet es) >OR=6 .5% Consi stent with diabe sherita REFER ENCE: Diabe sherita Care 2016, 39(Guaman ppl.1 ):s13 -s22 Not Available [facility] (Lab) [address] [place], [address], 09/04/2022 20:30:02 09/05/19 23 09/04/2022 URINA LYSIS COMPL ETE, IRIS color LIGHT- YELLOW Not Available [facility] (Lab) [address] [place], [address], 09/04/2022 20:30:37 09/05/19 23 09/04/2022 URINA LYSIS COMPL ETE, IRIS appear TURBID abnormal Not Available [facility] (Lab) [address] [place], [address], 09/04/2022 20:30:37 09/05/19 23 09/04/2022 URINA LYSIS COMPL ETE, IRIS specific gravity 1.007 1.001- 1.030 Not Available [facility] (Lab) [address] [place], [address], 09/04/2022 20:30:37 09/05/19 23 09/04/2022 URINA LYSIS COMPL ETE, IRIS pH 6.5 pH_un its 5.0-9. 0 Not Available [facility] (Lab) [address] [place], [address], 09/04/2022 20:30:37 09/05/19 23 09/04/2022 URINA LYSIS COMPL ETE, IRIS leukocytes NEGATI VE shekhar/u L negati ve- Not Available [facility] (Lab) [address] [place], [address], 09/04/2022 20:30:37 09/05/19 23 09/04/2022 URINA LYSIS COMPL ETE, IRIS nitrite NEGATI VE negati ve- Not Available [facility] (Lab) [address] [place], [address], 09/04/2022 20:30:37 09/05/19 23 09/04/2022 URINA LYSIS COMPL ETE, IRIS protein NEGATI VE mg/dL negati ve- Not Available [facility] (Lab) [address] [place], [address], 09/04/2022 20:30:37 09/05/19 23 09/04/2022 URINA LYSIS COMPL ETE, IRIS glucose NORMAL mg/dL normal - Not Available [facility] (Lab) [address] [place], [address], 09/04/2022 20:30:37 09/05/19 23 09/04/2022 URINA LYSIS COMPL ETE, IRIS ketones NEGATI VE mg/dL negati ve- Not Available [facility] (Lab) [address] [place], [address], 09/04/2022 20:30:37 09/05/19 23 09/04/2022 URINA LYSIS COMPL ETE, IRIS urobilinogen NORMAL mg/dL normal - Not Available [facility] (Lab) [address] [place], [address], 09/04/2022 20:30:37 09/05/19 23 09/04/2022 URINA LYSIS COMPL ETE, IRIS bilirubin NEGATI VE mg/dL negati ve- Not Available [facility] (Lab) [address] [facility] [place], [address], 09/04/2022 20:30:37 09/05/19 23 09/04/2022 URINA LYSIS COMPL ETE, IRIS blood NEGATI VE mg/dL negati ve- Not Available [facility] (Lab) [address] [facility] [place], [address], 09/04/2022 20:30:37 09/05/19 23 09/04/2022 URINA LYSIS COMPL ETE, IRIS white blood cells 0-8 /i??h pfi?? 0-8 Not Available [facility] (Lab) [address] [facility] [place], [address], 09/04/2022 20:30:37 09/05/19 23 09/04/2022 URINA LYSIS COMPL ETE, IRIS red blood cells 0-4 /i??h pfi?? 0-4 Not Available [facility] (Lab) [address] [facility] [place], [address], 09/04/2022 20:30:37 09/05/19 23 09/04/2022 URINA LYSIS COMPL ETE, IRIS bacteria NONE Not Available [facility] (Lab) [address] [place], [address], 09/04/2022 20:30:37 09/05/19 23 09/04/2022 URINA LYSIS COMPL ETE, IRIS squamous epithelial PACKED FIELD /i??l pfi?? abnormal Not Available [facility] (Lab) [address] [place], [address], 09/04/2022 20:30:37 09/05/19 23 09/04/2022 LIPID PANEL cholesterol 174 mg/dL 140-19 9 NIH PRADEEP NSUS RECOM MENDA TION FOR JEROME STERO L: ADULT CHILD LOW RISK: <200 <170 BORDE RLINE : <200- 239 ----- HIGH RISK: >240 >200 Not Available [facility] (Lab) [address] [place], [address], 09/04/2022 21:15:13 09/05/19 23 09/04/2022 LIPID PANEL triglyceride s 58 mg/dL 0-150 NIH PRADEEP NSUS REPOR T RECOM MENDA TION FOR TRIGL YCERI JOHN: ADULT CHILD LOW RISK: <150 ----- BODER LINE: 150-1 99 ----- HIGH RISK: >200 ----- Not Available [facility] (Lab) [address] [place], [address], 09/04/2022 21:15:13 09/05/19 23 09/04/2022 LIPID PANEL HDL cholesterol 41 mg/dL 40- Not Available [facility] (Lab) [address] [place], [address], 09/04/2022 21:15:13 09/05/19 23 09/04/2022 LIPID PANEL LDL cholesterol, calculated 121 mg/dL 0-130 NIH PRADEEP NSUS REPOR T RECOM MENDA TIONS FOR LDL: ADULT CHILD LOW RISK <130 <110 (OPTI MAL LDL) <100 ----- BEAN RLINE : 130-1 59 ----- HIGH RISK: >160 >130 A TRIGL YCERI DE RESUL T >400 INVAL IDATE S THE CALCU LATIO N FOR LDL FRACT IONAT ION - THE LDL RESUL T WILL NOT BE REPOR [place]. Not Available [facility] (Lab) [address] [place], [address], 09/04/2022 21:15:13 09/05/19 23 09/04/2022 COMPR EHENS DAMIAN METAB OLIC PANEL sodium 140 mmol/ L 137-14 5 Not Available [facility] (Lab) [address] [place], [address], 09/04/2022 21:15:19 09/05/19 23 09/04/2022 COMPR EHENS DAMIAN METAB OLIC PANEL potassium 4.2 mmol/ L 3.5-5. 1 Not Available [facility] (Lab) [address] [place], [address], 09/04/2022 21:15:19 09/05/19 23 09/04/2022 COMPR EHENS DAMIAN METAB OLIC PANEL chloride 106 mmol/ L 98-107 Not Available [facility] (Lab) [address] [place], [address], 09/04/2022 21:15:19 09/05/19 23 09/04/2022 COMPR EHENS DAMIAN METAB OLIC PANEL carbon dioxide 25 mmol/ L 22-30 Not Available [facility] (Lab) [address] [place], [address], 09/04/2022 21:15:19 09/05/19 23 09/04/2022 COMPR EHENS DAMIAN METAB OLIC PANEL anion gap 13.2 mmol/ L 14-22 low Not Available [facility] (Lab) [address] [place], [address], 09/04/2022 21:15:19 09/05/19 23 09/04/2022 COMPR EHENS DAMIAN METAB OLIC PANEL glucose 86 mg/dL 70-99 Not Available [facility] (Lab) [address] [place], [address], 09/04/2022 21:15:19 09/05/19 23 09/04/2022 COMPR EHENS DAMIAN METAB OLIC PANEL BUN 14 mg/dL 8-19 Not Available [facility] (Lab) [address] [place], [address], 09/04/2022 21:15:19 09/05/19 23 09/04/2022 COMPR EHENS DAMIAN METAB OLIC PANEL creatinine 0.89 mg/dL 0.66-1 .25 Not Available [facility] (Lab) [address] [place], [address], 09/04/2022 21:15:09/05/1909/04/2022 COMPR EHENS DAMIAN METAB OLIC PANEL GFR >60 Refer ence Range : [place] ge GFR Healt hy Adult : >60 [...] calcu lator is avail able on the [facility] websi te: https :[email or web address] [email or web address] jane s/ireneo qi/gf r_cal culat or Not Available [facility] (Lab) [address] [place], [address], 09/04/2022 21:15:19 09/05/1909/04/2022 COMPR EHENS DAMIAN METAB OLIC PANEL alkaline phosphatase 52 U/L 38-126 Not Available [facility] (Lab) [address] [place], [address], 09/04/2022 21:15:19 09/05/1909/04/2022 COMPR EHENS DAMIAN METAB OLIC PANEL alanine aminotransfe rase 18 U/L 0-35 Not Available [facility] (Lab) [address] [place], [address], 09/04/2022 21:15:19 09/05/19 23 09/04/2022 COMPR EHENS DAMIAN METAB OLIC PANEL aspartate aminotransfe rase 22 U/L 15-37 Not Available [facility] (Lab) [address] [place], [address], 09/04/2022 21:15:19 09/05/19 23 09/04/2022 COMPR EHENS DAMIAN METAB OLIC PANEL bilirubin, total 0.40 mg/dL 0.20-1 .30 Not Available [facility] (Lab) [address] [place], [address], 09/04/2022 21:15:19 09/05/19 23 09/04/2022 COMPR EHENS DAMIAN METAB OLIC PANEL calcium 9.3 mg/dL 8.4-10 .2 Not Available [facility] (Lab) [address] [place], [address], 09/04/2022 21:15:19 09/05/19 23 09/04/2022 COMPR EHENS DAMIAN METAB OLIC PANEL total protein 6.9 g/dL 6.3-8. 2 Not Available [facility] (Lab) [address] [place], [address], 09/04/2022 21:15:19 09/05/19 23 09/04/2022 COMPR EHENS DAMIAN METAB OLIC PANEL albumin 3.7 g/dL 3.4-5. 0 Not Available [facility] (Lab) [address] [place], [address], 09/04/2022 21:15:19 09/05/19 23 09/04/2022 COMPR EHENS DAMIAN METAB OLIC PANEL globulin 3.2 g/dL 2.6-4. 2 Not Available [facility] (Lab) [address] [place], [address], 09/04/2022 21:15:19 09/05/19 23 09/04/2022 COMPR EHENS DAMIAN METAB OLIC PANEL A/G ratio 1.2 ratio 1.0-2. 0 Not Available [facility] (Lab) [address] [place], [address], 09/04/2022 21:15:19 09/05/19 23 09/04/2022 TSH thyroid-stim ulating hormone 0.963 uIU/m L 0.465- 4.680 Not Available [facility] (Lab) [address] [place], [address], 09/04/2022 21:41:50 09/11/1909/10/2022 COLOG UARD cologuard result reportable NEGATI VE negati ve NEGAT DAMIAN TEST RESUL T. A negat damian Colog uard resul t indic ates a low likel ihood that a color ectal cance r (CRC) or advan jaci adeno ma (denis omato us polyp s with more advan jaci pre-m align ant featu res) is prese nt. The [facility] [place] e that a perso n with a [...] of 10,00 0 indiv idual s at [facility] risk for color ectal cance r who [...] asymp tomat ic indiv idual s at [facility] for color ectal cance r. Follo wing a negat damian Colog uard resul t, the Ameri can Cance r Socie ty and U.S. Multi -Soci ety Task Force scree karen guide lines recom mend a Colog uard re-sc romina oliver inter ren of 3 years . Refer [...] ectal Cance r Scree karen , Arina Santana Gastr lillynte rolog y 2017; 112:1 016-1 030. TEST DESCR IPTIO N: [place] site algor ithmi c kristen sis of [...] years or older , who are at [facility] for color ectal cance r (CRC) . Colog uard has been appro karolyn for use by the U.[place]. FDA. The perfo rmanc e of Colog uard was estab lishe d in a cross secti onal study of [facility] adult s aged 50-84 . Colog uard [...] study of 0 indiv idual s at [facility] risk for color ectal cance r who [...] d can be acces sed at the follo wing locat ion: www.e xactl abs.c om/re rosy . Addit ional descr iptio n of the Colog uard test proce ss, warni ngs and preca ution s can be found at www.c mejiaogu candido.c om. Not Available [facility] (Cologuard Orders Only) [address], [place], [address], 09/21/2022 17:31:10 06/15/19 25 06/14/2024 US, thyro id No observ ation record ed. [facility] [address], [place], [address], 06/17/2024 10:33:16 06/15/19 25 06/14/2024 US, thyro id No observ ation record ed. [facility] [address] [facility] [address], [place], [address], 06/17/2024 10:33:33 Result Notes None recorded. Problems Name Problem SNOMED Code Status Onset Date Resolution Date Notes Provider Name and Address Organization Details Recorded Time Attack 516102064 Active 2018 Not Available [facility] 3 08:09:09 Fever 382317231 Active Not Available [facility] 3 08:09:09 Foot pain 24504360 Active Not Available [facility] 3 08:09:10 Chronic fatigue syndrome 78347211 Active Not Available [facility] 3 08:09:10 COVID-19 349372625 Active 2020 Not Available [facility] 3 08:09:10 Mood disorder 12720217 Active 2022 [facility] [address], [address], [place], [address] , [employer] [facility] [employer] 3 08:51:48 Seasonal allergy 849373078 Active 2022 [facility] [address], [address], [place], [address] , [facility] 3 09:03:01 Upper respiratory infection 38336669 Active 2022 [facility] [address], [address], [place], [address] , [facility] [place] 3 12:02:45 Acute sinusitis 29155217 Active 2022 [facility] [address], [place], [address] , [facility] 3 09:06:21 Prediabetes 493584413 Active 2022 [facility] [address], [place], [address] , [facility] 3 09:11:15 Goiter 8665278 Active 2024 MALCOLM Mcgarry [address], [place], [address] , [facility] 5 10:16:19 Acute upper respiratory infection 90429339 Active 2024 MALCOLM Mcgarry [address], [address] [address], [place], [address] , [facility] 5 10:19:42 Menopausal flushing 432660879 Active 2024 MALCOLM Mcgarry [address], [address] [address], [place], [address] , [facility] 5 10:23:56 Thyroid nodule 807464505 Active 2024 MALCOLM Mcgarry [address], [address] [address], [place], [address] , [facility] 5 23:15:27 Problem Notes None recorded. Procedures Surgical History None recorded. Imaging Results Imaging Date Name Status LastModified by Organiz ation Details LastModified Time 06/14/2024 US, [facility] [address], [address], 06/17/2024 10:33:16 06/14/2024 US, thyroid completed [facility] [address] [facility] [address], [place], [address], 06/17/2024 10:33:33 Procedure Notes None recorded. Medical Equipment None Reported. [...] route. 06/08 completed PA not approved through insuran e Not Available Not Available Not Available Vitals Date Recorded Body weight Body mass index (BMI) Body height Body temperature Heart rate Oxygen saturation Oxygen saturation in Arterial blood by Pulse oximetry Systolic blood pressure Diastolic blood pressure Provider Name and Address Organization Details Last Updated DateTime 3 69488.8 9 g 30.5 kg/m2 160.02 cm 97.5 [degF] 94 /min 98 % 98 % 114 mm[Hg] 68 mm[Hg] Galina thomas CMA [place] [facility] [employer] [facility] 3 08:47:24 Date Recorded Body height Body mass index (BMI) Body weight Body temperature Heart rate Oxygen saturation Oxygen saturation in Arterial blood by Pulse oximetry Systolic blood pressure Diastolic blood pressure Provider Name and Address Organization Details Last Updated DateTime 3 160.02 cm 30.6 kg/m2 25888.4 8 g 98.5 [degF] 99 /min 96 % 96 % 138 mm[Hg] 96 mm[Hg] Carlene Ellis RN [facility] [employer] [facility] 3 08:57:22 Date Recorded Body weight Respiratory rate Heart rate Body temperature Oxygen saturation Oxygen saturation in Arterial blood by Pulse oximetry Systolic blood pressure Diastolic blood pressure Provider Name and Address Organization Details Last Updated DateTime 5 38422.6 3 g 17 /min 92 /min 98.1 [degF] 98 % 98 % 122 mm[Hg] 80 mm[Hg] Gloria Paul [place] [facility] [employer] 5 10:06:20 Social History None recorded. Functional [...] SNOMED-CT Code Diagnosis ICD10 Code Diagnosis Note [id number] [facility] [address] [place] [address] 09/04/2022 08:27:32 09/04/2022 08:39:12 Mood disorder 89336361 F39 Chronic Adult [facility] th examination 698523790 Z13.29 Z13.220 Z13.89 Z13.1 Z00.01 Adult Health Exam--Due for routine labs (CBC, CMP, Lipids, HgA1C, TSH, UA).--Mamm ogram ordered--C olon screening at 45yo-Colog uard ordered--B one Density at 65yo if indicated- -PAP/WWE-r ecommended . Pt to schedule.- -Tdap recommende d q 10 years-up to date--Flu recommende d yearly--CO VID-19 recommende d-Pt declines-- Encouraged yearly dental, vision, hearing screenings Screening mammography 24 205851 Z12.31 Seasonal allergy 9156825 04 J30.2 Screening for malignant neoplasm of colon 117465604 Z12.11 [id number] [facility] Primary Care [facility] [address] [facility] [address] [place] [address] 09/17/2022 08:40:01 09/17/2022 09:23:34 Acute sinusitis 44378453 J01.90 No improvemen t with Z-pack.Enc ouraged warm compresses to face/jawli ne to promote drainage. Ok to take otc pain relievers per package instructio ns to reduce discomfort . Continue/s tart nasal spray otc anti-hista mines per package instructio ns. Complete all abx and steroids as directed. Seasonal allergy 8725766 04 J30.2 ChronicNot improved with fexofenadi ne.Seasona [...] of steroids and add on montelukas t [facility] Prediabetes 064748775 R7 3.03 New GesvkhzC8Q 6.0 (09/04/22)D iscussed need for regular exercise, increase intake of water/vege tables/fib er. Decrease intake of carbs, especially white rice/pasta /flour/jonah ad/sugar. [id number] MALCOLM Mcgarry [facility] Primary Care [facility] [address] [facility] [address] [place] [address] 06/02/2024 09:52:13 06/02/2024 10:49:56 Goiter 7360487 E04.9 Acute uppe r respiratory infection 26610107 J06.9 Mood disorder 15452586 F 39 Menopausal flushing 1983 02203 N95.1 Health Concerns Section Related Observation LastModified by Organization Detai ls LastModified Time None Recorded Concern Status LastModified by Organization Details LastModified Time None Recorded Advance Directives Directive None Recorded Payers Encounter Date Sequence Insurance Name Policy Number Policy Javier Covered Member ID Javier Member ID Guarantor Name 09/04/2022 1 [place] [id number] Maren Bereuter [id number] Maren Bereuter 09/17/2022 1 [place] [id number] Maren Bereuter [id number] Maren Bereuter 06/02/2024 1 [place] [id number] Maren Bereuter [id number] Maren Bereuter Notes Date Note Type Note Provider Name and Address Organization Details Recorded Time 09/04/2022 text/html 1. Pt in office to re-establish care. [facility] [address], [place], [address], [facility] 09/04/2022 10:26:48 09/17/2022 text/html 1. Pt in office for 2 week f/u on labs2. Pt states she is still having a hard time with her allergies despite taking the Khloe daily. Pt states the Z-pack she received isn't helping. [facility] [address], [place], [address], [facility] 09/17/2022 13:51:59 06/02/2024 text/html Patient is a 49 year old female that presents to the office to discuss a thyroid issue that was discovered by [facility]. Patient reports she had a lifelong screening completed through [facility], when they were completing the ultrasound of [...] is sick with similar symptoms. Tessie Ravi, [employer] [address] [facility] [address], [place], [address], [place] [facility] 06/02/2024 11:12:26 OBGyn Episode No OBEpisode recorded.
--- OUTSIDE RECORDS SUMMARY | 2024-07-26 13:07 | XMS_ITS | Clinical Summary ---
Author Organization [facility] Address [address] [place] [address] Care Team Providers Care Industrial Custodian Name Role Phone Unavailable Primary Care Provider [...] 2016 COVID-19 Vaccine (2023-2 5 season) 2023 Meningococcal B Vaccine Aged Out No l onger eligible based on patient's age to complete this topic Meningococcal Vaccine Aged Out No fili lor eligible based on patient's age to complete this topic Pneumococcal Vaccine: Pediat rics (0 to 5 Years) and At-Risk Patients (6 to 49 Years) Aged Out No longer eligible b ased on patient's age to complete this topic RSV Immunizations Under 20 Months Aged Out No longer eligible based on patient's age to complete this topic
--- OUTSIDE RECORDS SUMMARY | 2024-07-26 13:07 | XMS_ITS | Clinical Summary ---
Author Organization [facility] [address] Address [address] [place] [address] Care Team Providers Care Head [employer] Custodian Name Role Phone Izabella Ortiz MD Primary [...] Diagnosed Date Coronary artery disease invo lving [place] coronary artery of [place] heart without angina pectoris 12/07/2018 History of [...] Plan of Treatment Not on file Insurance [employer] [place] Care Teams Head School Custodian Relationship Specialty Start Date End Date Izabella Ortiz MD PCP - General Family Medicine 10/01/18
== END 2024-07-26 12:52 | disposition home or self-care (01) ==
PROVIDERS: PCP Nurse Practitioner Family; Visit Provider Nurse Practitioner Family
DX: E04.1 Nontoxic single thyroid nodule (principal)
CPT/HCPCS: 10005; 88172; 88173; 88305